=== PATIENT | female | born 1995 | race Caucasian/White ===

== ENCOUNTER 2016-11-07 11:18 | Emergency (ER) | payer SELFPAY ==
--- NOTE | 2016-11-07 12:37 | UC ---
Complaint Female HPI - HPI Summary HPI Summary: Urinary frequency and burning for about 2-3 days. she has developed vomiting in the meantime. no diarrhea or significant abd pain. no fever. Prior hx of UTI and this feels similar. - History Of Current Complaint Stated Complaint: VOMITING,URINARY Time Seen by Provider: 11/07/16 12:23 Hx Obtained From: Patient ?: No Onset/Duration: Gradual Onset Timing: Constant Severity Initially: Moderate Severity Currently: Moderate Character: Dull - Konstantin lower flank pain. Aggravating Factor(s): Nothing Associated Signs And Symptoms: Positive: Back Pain, Nausea. Negative: Fever, Vaginal Bleeding/Discharge, Vaginal Discharge, Genital Swelling, Genital Blisters, Retained Foregin Body (Specify) - Allergies/Home Medications Allergies/Adverse Reactions: Allergies Allergy/AdvReac Type Severity Reaction Status Date / Time No Known Allergies Allergy Verified 11/07/16 12:34 PMH/Surg Hx/FS Hx/Imm Hx Previously Healthy: Yes Endocrine History Of: Denies: Diabetes GI/ History Of: Denies: Kidney Stones, Renal Disease, Urosepsis - Surgical History Surgical History: None - Family History Known Family History: Positive: Other - no related family disease. - Social History Occupation: Employed Full-time - sexually active with same partner for months. Substance Use Type: None Review of Systems All Other Systems Reviewed And Are Negative: Yes Physical Exam Triage Information Reviewed: Yes Appearance: Well-Appearing, No Pain Distress, Well-Nourished Vital Signs Reviewed: Yes Eyes: Positive: Conjunctiva Clear. Negative: Conjunctiva Inflamed ENT Exam: Normal ENT: Positive: Normal ENT inspection, Hearing grossly normal, Pharynx normal. Negative: Pharyngeal erythema, Nasal congestion, Nasal drainage, TMs normal, TM bulging, TM dull, TM red, Tonsillar swelling, Tonsillar exudate, Trismus, Muffled/hoarse voice Dental Exam: Normal Neck exam: Normal Neck: Positive: Supple, Nontender, No Lymphadenopathy. Negative: Nuchal Rigidity, Tenderness @, Enlarged Nodes @ Respiratory: Positive: Chest non-tender, Lungs clear, Normal breath sounds, No respiratory distress, No accessory muscle use. Negative: Respiratory distress, Decreased breath sounds, Accessory muscle use, Crackles, Rhonchi, Stridor, Wheezing Cardiovascular Exam: Normal Cardiovascular: Positive: RRR, No Murmur, Pulses Normal, Brisk Capillary Refill Abdominal Exam: Normal Abdomen Description: Positive: Nontender, No Organomegaly, Soft. Negative: CVA Tenderness (R), CVA Tenderness (L) - there is no cvat. but there is lower konstantin flank percussion tenderness that appears mild without guarding. Bowel Sounds: Positive: Present Musculoskeletal Exam: Normal Musculoskeletal: Positive: Strength Intact, ROM Intact, No Edema Neurological Exam: Normal Neurological: Positive: Alert, Muscle Tone Normal Psychological Exam: Normal Psychological: Positive: Age Appropriate Behavior Skin Exam: Normal Skin: Negative: rashes Complaint Female Dx - Course Course Of Treatment: dysuria. vomiting. No worrisome findings such as fever, tachycardia, abd or flank guarding to suggest PID, Pyelonephritis, appendicitis. NO vaginal complaints. she was told that pyelonephritis can be dangerous and therefore she would have to return for any worsening symptoms. At this point, she has no tachycardia or outright fever. her pain and percussion tenderness is lowe rback and konstantin. - Differential Dx/Diagnosis Differential Diagnosis/HQI/PQRI: Appendicitis, Cervicitis, Ectopic, Ovarian Cyst , Ovarian Torsion, Pelvic Inflammatory Disease, , Retained Foreign Body , Sexually Transmitted Disease, Tubo-ovarian Abscess, Ureteral Stone, Urinary Tract Infection Provider Diagnoses: UTI. Vomiting. Discharge - Discharge Plan Condition: Good Disposition: HOME Prescriptions: Nitrofurantoin Macrocrystals* [Macrodantin*] 100 mg PO BID #20 cap Ondansetron TAB* [Zofran 4 MG Tab*] 4 mg PO Q6H PRN #12 tab PRN Reason: Nausea Patient Education Materials: Dysuria (ED), Urinary Tract Infection in Women (ED ) Referrals: [facility] [place] [facility] [Outside] Additional Instructions: return here in 1-2 days if not improving. Return to ED for any worsening at any time.
[2016-11-07 12:39] VITALS: BP 109/70
[2016-11-07] MEDS ORDERED: Ondansetron ODT TAB* 4 MG PO ONE (12:51)
[2016-11-07] MEDS ORDERED: cefTRIAXone VIAL(*) 1,000 MG VIAL IM ONE (12:51)
[2016-11-07] MEDS ORDERED: Lidocaine 1%* 5 ML VIAL ONE (13:00)
== END 2016-11-07 13:12 | disposition home or self-care (01) ==
LOC: UCCORT 11:18
DX: N39.0 Urinary tract infection, site not specified (principal); Z87.440 Personal history of urinary (tract) infections; R11.10 Vomiting, unspecified; Z32.02 Encounter for pregnancy test, result negative
CPT/HCPCS: 81003; 84702; 87086; 99202; G0463; J0696